=== PATIENT | male | born 1970 | race Two or more races ===

== ENCOUNTER 2018-10-20 22:00 | Emergency (ER) | payer SELFPAY ==
[~2018-10-20] VITALS: Ht 170.2 cm; Wt 83.0 kg
[2018-10-20 22:11] VITALS: BP 134/85
== END 2018-10-21 01:49 | disposition left against medical advice (07) ==
LOC: ER 22:07
DX: S60.561A Insect bite (nonvenomous) of right hand, initial encounter (principal); Z53.21 Procedure and treatment not carried out due to patient leaving prior to being seen by health care provider; W57.XXXA Bitten or stung by nonvenomous insect and other nonvenomous arthropods, initial encounter; Y93.89 Activity, other specified; Y99.8 Other external cause status; Y92.89 Other specified places as the place of occurrence of the external cause

== ENCOUNTER 2018-10-21 23:45 | Emergency (ER) | payer SELFPAY ==
[~2018-10-21] VITALS: Ht 170.2 cm; Wt 86.2 kg
[2018-10-21 23:56] VITALS: BP 137/96
== END 2018-10-22 07:04 | disposition home or self-care (01) ==
LOC: ER 23:47
DX: S60.561A Insect bite (nonvenomous) of right hand, initial encounter (principal); M54.2 Cervicalgia; W57.XXXA Bitten or stung by nonvenomous insect and other nonvenomous arthropods, initial encounter; Y93.89 Activity, other specified; Y99.8 Other external cause status; Y92.89 Other specified places as the place of occurrence of the external cause